=== PATIENT | male | born 1975 | race Caucasian/White ===

== ENCOUNTER 2017-05-23 07:04 | Day surgery (SDC) | payer OTHER ==
[2017-05-23 07:33] VITALS: BMI 22.8
[2017-05-23] MEDS ORDERED: Lidocaine Hydrochloride 5 ML INJ ONE (08:36)
[2017-05-23] MEDS ORDERED: Propofol 10 mg/ml Inj (20 ML) ONE ×2 (08:36)
[2017-05-23] MEDS ORDERED: Lactated Ringer's 1,000 ML IV ONE (09:05)
[2017-05-23] MEDS ORDERED: DiphenhydrAMINE 50 mg/ml Inj ONE (09:08)
[2017-05-23 10:14] VITALS: RESP 12; TEMP 96.8
[2017-05-23 11:03] VITALS: BP 113/71; PULSE 60; O2SAT 100
== END 2017-05-23 11:00 | disposition home or self-care (01) ==
LOC: C.ENDO 07:04
PROVIDERS: ATTEND Internal Medicine
DX: R63.4 Abnormal weight loss (principal); K92.1 Melena; R19.4 Change in bowel habit; K76.9 Liver disease, unspecified; I10 Essential (primary) hypertension; E78.5 Hyperlipidemia, unspecified; Z79.899 Other long term (current) drug therapy; K22.70 Barrett's esophagus without dysplasia; K29.70 Gastritis, unspecified, without bleeding; K44.9 Diaphragmatic hernia without obstruction or gangrene; K21.0 Gastro-esophageal reflux disease with esophagitis; K64.8 Other hemorrhoids
CPT/HCPCS: 43239; 45378; 88305; J1200; J2704; J7120